=== PATIENT | male | born 1995 | race Caucasian/White ===

== ENCOUNTER 2022-12-08 21:02 | Emergency (ER) | payer SELFPAY ==
[~2022-12-08] VITALS: Ht 180.3 cm; Wt 97.5 kg
[2022-12-08 21:13] VITALS: BP_SYST 122; PULSE 129; RESP 18; TEMP 102.7; O2SAT 96
== END 2022-12-08 21:30 | disposition left against medical advice (07) ==
LOC: SED 21:02
DX: R50.9 Fever, unspecified (principal); M79.10 Myalgia, unspecified site; R51.9 Headache, unspecified; Z53.21 Procedure and treatment not carried out due to patient leaving prior to being seen by health care provider
CPT/HCPCS: 99281